=== PATIENT | male | born 1985 | race African-American/Black ===

== ENCOUNTER 2020-07-17 18:02 | Emergency (ER) | payer MEDICAID, OTHER ==
[~2020-07-17] VITALS: Ht 198.1 cm; Wt 111.4 kg
--- NOTE | 2020-07-17 18:42 | NUR ---
TASK RN: PT AMBULATORY TO ROOM FROM WALL. PT PLEASANT AND COOPERATIVE. INSTRUCTED ON CHANGING INTO GOWN AND PLACING ALL BELONGINGS IN PT BAG, THEN TO PROVIDE URINE SAMPLE. SITTER IN HALLWAY WITH PT IN VIEW. MEAL TRAY ORDERED. WARM BLANKET PROVIDED AND CALL LIGHT W/I REACH.
--- NOTE | 2020-07-17 18:52 | NUR ---
ALEXA RN: ALL BELONGINGS IN 1 BAG AND PLACED IN LOCKER. PT AMBULATE TO BATHROOM AND PROVIDED URINE SAMPLE. URINE COLLECTED AND WALKED TO LAB. BRUNAAR RPT TO [facility]WE[facility] POE
--- NOTE | 2020-07-17 18:59 | NUR ---
PATIENT RECEIVED MEAL TRAY. AMBULATED TO BATHROOM WITH STEADY GAIT. LAB AT BEDSIDE NOW FOR LAB DRAW
[2020-07-17 19:11] LABS: BASOPHILS % (AUTO) 1 % (0-1); EOSINOPHILS % (AUTO) 1 % (1-7); LYMPHOCYTES % (AUTO) 33 % (22-44); MEAN CORPUSCULAR HGB CONC 34.9 g/dL (33.2-36.2); MONOCYTES % (AUTO) 8 % (2-9); NEUTROPHILS % (AUTO) 57 % (42-75); PLATELET COUNT 270 x10^3/uL (130-400); RED BLOOD COUNT 4.85 x10^6/uL (4.38-5.82)
[2020-07-17 19:12] LABS: MD NO
[2020-07-17 19:19] LABS: BENZODIAZEPINE SCREEN, URINE Negative (Negative); CANNABINOID SCREEN, URINE Positive (Negative); METHADONE SCREEN, URINE Negative (Negative); OPIATE SCREEN, URINE Negative (Negative)
[2020-07-17 19:19] LABS: ALANINE AMINOTRANSFERASE 28 U/L (12-78); ALBUMIN 4.2 g/dL (3.4-5.0); ANION GAP 7 mmol/L (5-15); CALCIUM 9.2 mg/dL (8.5-10.1); CHLORIDE 109 mmol/L (98-107); CREATININE 1.29 mg/dL (0.7-1.3)
[2020-07-17 19:21] LABS: SALICYLATE LEVEL < 1.7 mg/dL (2.8-20.0)
[2020-07-17 19:22] LABS: ALKALINE PHOSPHATASE 56 U/L (45-117); BILIRUBIN,TOTAL 1.3 mg/dL (0.2-1.0); TOTAL PROTEIN 7.7 g/dL (6.4-8.2)
[2020-07-17 19:36] LABS: AMPHETAMINE SCREEN, URINE Negative (Negative); BARBITURATE SCREEN, URINE Negative (Negative); COCAINE SCREEN, URINE Negative (Negative)
--- NOTE | 2020-07-17 19:52 | NUR ---
UPDATED WITH PATIENT'S CONSENT
[2020-07-17] MEDS ORDERED: LORazepam 1MG TABLET PO ONE (20:00)
[2020-07-17 20:25] LABS: MICROSCOPIC NOT IND
--- NOTE | 2020-07-17 21:00 | NUR ---
PATIENT RESTING IN BED IN NAD. CALL ADKINS IN REACH. SAFETY MAINTAINED. WILL CONTINUE TO MONITOR. 1:1 IN VIEW OF PATIENT
[2020-07-17] MEDS ORDERED: LORazepam 1MG TABLET ONE (21:32)
--- NOTE | 2020-07-17 21:37 | NUR ---
TP RN: followed up with telepsych; in the queue.
--- NOTE | 2020-07-17 22:10 | NUR ---
UPDATED AT THIS TIME WITH NO NEW UPDATES.
--- NOTE | 2020-07-17 23:30 | NUR ---
REPORT GIVEN TO TELEPSYCH DOC VIA PHONE
--- NOTE | 2020-07-17 23:52 | NUR ---
TELEPSYCH DOC CALLED TO UPDATE THIS RN THAT HE FEELS THIS PATIENT SHOULD BE ADMITTED. DR. LÓPEZ NOTIFIED WELL THROUGHPUT
--- NOTE | 2020-07-18 01:22 | NUR ---
PATIENT RESTING IN BED IN NAD. CALL ADKINS IN REACH. SAFETY MAINTAINED. 1:1 SITTER IN VIEW OF PATIENT. WARM BLANKET PROVIDED AND BOTTLED WATER. PATIENT UPDATED ON PLAN OF CARE.
--- NOTE | 2020-07-18 02:00 | NUR ---
PATIENT RESTING IN BED IN NAD. CALL ADKINS IN REACH. SAFETY MAINTAINED. 1:1 SITTER IN VIEW OF PATIENT
--- NOTE | 2020-07-18 02:58 | NUR ---
PATIENT RESTING IN BED WITH LIGHTS DIMMED FOR PROMOTION OF SLEEP. CALL ADKINS IN REACH. NO FURTHER NEEDS AT THIS TIME
--- NOTE | 2020-07-18 03:14 | NUR ---
PACKETS FAXED TO [facility], [facility], [facility] AND [facility].
--- NOTE | 2020-07-18 03:51 | NUR ---
PER [facility], PT ONLY OFFERED SELF PAY
--- NOTE | 2020-07-18 04:10 | NUR ---
PATIENT RESTING IN BED WITH EYES CLOSED AND LIGHTS DIMMED FOR SLEEP PROMOTION. 1:1 SITTER IN VIEW OF PATIENT FOR SAFETY. WILL CONTINUE TO MONITOR.
--- NOTE | 2020-07-18 05:12 | NUR ---
PATIEN RESTING IN BED IN NAD. LAYING ON L LATERAL SIDE. CALL ADKINS IN REACH. 1:1 SITTER IN VIEW OF PATIENT. SAFETY MAINTAINED
--- NOTE | 2020-07-18 06:45 | NUR ---
PAIENT UP AND AMBULATED TO BATHROOM WITH STEADY GAIT. I REQUESTED HOSPITAL BED 1 HOUR AGO. HAVE NOT RECEIVED THIS YET. SAFETY MAINTAINED. 1:1 SITTER IN VIEW OF PATIENT FOR SAFETY.
--- NOTE | 2020-07-18 07:03 | NUR ---
REPORT GIVEN TO SYLVESTER ARREOLA
--- NOTE | 2020-07-18 07:17 | NUR ---
PT RESTING ON ED GURNEY WITH EYES CLOSED. EVEN RISE AND FALL OF CHEST NOTED. NAD. ALL NEEDS MET AT THIS TIME. ROOM SECURED. PT IN VIEW OF SITTER OUTSIDE ROOM.
[2020-07-18 08:50] VITALS: BP 120/72
--- NOTE | 2020-07-18 08:52 | NUR ---
PT VSS. PT DENIES PHYSICAL COMPLAINT, HOWEVER STATES HE FEELS ANXIOUS. PT ALSO STATES HIS SUICIDAL FEELINGS HAVE SOMEWHAT SUBSIDED, BUT ARE STILL PRESENT. DENIES PLAN OR ACTION AT THIS TIME. PT BREAKFAST DELIVERED.
--- NOTE | 2020-07-18 09:33 | NUR ---
pt : Cece [phone]
--- NOTE | 2020-07-18 12:23 | NUR ---
PER [facility], [facility] WILL ACCEPT AROUND 1500
[2020-07-18] MEDS ORDERED: QUETIAPINE 25MG TABLET ONE (12:56)
--- NOTE | 2020-07-18 12:59 | NUR ---
PT LUNCH DELIVERED. MEDICATED [place] AUG. . ALL NEEDS MET AT THIS TIME.
[2020-07-18] MEDS ORDERED: QUETIAPINE 25MG TABLET PO ONE (13:00)
--- NOTE | 2020-07-18 16:34 | NUR ---
PHONE REPORT TO MAXWELL REYNOSO
== END 2020-07-18 18:31 | disposition other institution (70) ==
LOC: ED 19:31
DX: R45.851 Suicidal ideations (principal); Z20.822 Contact with and (suspected) exposure to COVID-19; F43.23 Adjustment disorder with mixed anxiety and depressed mood; R07.89 Other chest pain; F41.9 Anxiety disorder, unspecified; F32.9 Major depressive disorder, single episode, unspecified; F17.210 Nicotine dependence, cigarettes, uncomplicated
CPT/HCPCS: 36415; 80053; 80299; 80307; 80320; 80329; 81003; 85025; 87635; 93005; 99285; G0480

== ENCOUNTER 2020-07-18 14:13 | Inpatient (IN) | payer OTHER ==
[~2020-07-18] VITALS: Ht 198.1 cm; Wt 103.7 kg
[2020-07-18] MEDS ORDERED: BISACODYL 10 MG SUPP PR PRN (15:30)
[2020-07-18] MEDS ORDERED: DOCUSATE 100 MG CAPSULE PO PRN (15:30)
[2020-07-18] MEDS ORDERED: ACETAMINOPHEN 325 MG TABLET PO PRN (15:30)
[2020-07-18] MEDS ORDERED: POLYETHYLENE GLYCOL 17 GM PACKET PO PRN (15:30)
[2020-07-18] MEDS ORDERED: ONDANSETRON ODT 4 MG PO PRN (15:30)
[2020-07-18] MEDS ORDERED: PLEASE ENTER HEIGHT AND WEIGHT MC SCH (18:30)
[2020-07-18 19:34] LABS: MICROSCOPIC NOT IND
[2020-07-18 19:52] VITALS: BP 145/84
[2020-07-18 19:53] VITALS: BP 145/84
[2020-07-18] MEDS: QUETIAPINE 25MG TABLET PO SCH (21:18)
[2020-07-19 05:38] LABS: CHOL/HDL RATIO 3.5; FREE T4 (FREE THYROXINE) 0.99 ng/dL (0.76-1.46)
[2020-07-19 07:15] VITALS: BP 115/76
[2020-07-19] MEDS ORDERED: ESCITALOPRAM 10MG TABLET PO ONE (15:30)
[2020-07-19 20:16] VITALS: BP 130/84
[2020-07-19] MEDS: QUETIAPINE 25MG TABLET PO SCH (20:42)
[2020-07-20] MEDS ORDERED: ESCITALOPRAM 10MG TABLET ONE (07:28)
[2020-07-20 07:37] VITALS: BP 107/74
[2020-07-20] MEDS ORDERED: ESCITALOPRAM 10MG TABLET PO ONE ×2 (15:30→16:00)
[2020-07-20 19:20] VITALS: BP 112/80
[2020-07-20] MEDS: QUETIAPINE 25MG TABLET PO SCH (20:09)
[2020-07-21 07:34] VITALS: BP 114/77
[2020-07-21] MEDS ORDERED: ESCITALOPRAM 10MG TABLET PO SCH (09:00)
[2020-07-21] MEDS ORDERED: ESCI10TA97 PO (15:03)
[2020-07-21] MEDS ORDERED: QUET25TA7 PO (15:03)
== END 2020-07-21 16:35 | disposition left against medical advice (07) | DRG 885 ==
LOC: 3E 17:51
PROVIDERS: ADMIT Psychiatry & Neurology Psychosomatic Medicine; ATTEND Psychiatry & Neurology Psychosomatic Medicine
DX: F32.2 Major depressive disorder, single episode, severe without psychotic features (principal); G47.00 Insomnia, unspecified; Z79.899 Other long term (current) drug therapy; F41.9 Anxiety disorder, unspecified; F43.20 Adjustment disorder, unspecified; Z83.3 Family history of diabetes mellitus; Z82.49 Family history of ischemic heart disease and other diseases of the circulatory system
CPT/HCPCS: 36415; 71045; 80061; 81003; 84439; 84443; 93005